=== PATIENT | male | born 1990 | race Caucasian/White ===

== ENCOUNTER 2017-03-30 09:06 | Emergency (ER) | payer SELFPAY ==
[~2017-03-30] VITALS: Ht 185.4 cm; Wt 105.0 kg
[2017-03-30] MEDS ORDERED: KETOROLAC 60MG/2ML VIAL IM ONE (10:30)
[2017-03-30 12:07] VITALS: BP 113/65
== END 2017-03-30 12:10 | disposition home or self-care (01) ==
LOC: ER 10:09
DX: S66.911A Strain of unspecified muscle, fascia and tendon at wrist and hand level, right hand, initial encounter (principal); W22.8XXA Striking against or struck by other objects, initial encounter; Y93.9 Activity, unspecified; Y92.89 Other specified places as the place of occurrence of the external cause; Z88.0 Allergy status to penicillin
CPT/HCPCS: 73110; 73130; 99284